=== PATIENT | female | born 1945 | race Caucasian/White ===

== ENCOUNTER 2022-12-09 16:31 | Inpatient (IN) | payer BC, OTHER ==
[~2022-12-09] VITALS: Ht 167.6 cm; Wt 47.4 kg
--- NOTE | 2022-12-09 17:06 | NUR ---
PT PUT ON BED ON MONITOR AND PULSE. VS WNL. COOPERATIVE AO X2, A BIT CONFUSED. FOUND BY THE NEIGHBOR ON THE GROUND BY 330pm.
--- NOTE | 2022-12-09 17:15 | NUR ---
PT PAIN ON RT KNEE. 01/29. NOTED MULTIPLE BRUISES IN HER FOREARMS.
[2022-12-09] MEDS ORDERED: IV NS 0.9% 1,000 ML BAG IV ONE (17:30)
--- NOTE | 2022-12-09 17:40 | NUR ---
IV INSERTED, BLD DRAWN SENT TO LAB. TECH FOR EKG AT BEDSIDE
[2022-12-09 17:57] LABS: BASOPHILS % (AUTO) 0.3 % (0.0-2.0); EOSINOPHILS % (AUTO) 1.2 % (0.0-6.0); HEMATOCRIT 37 % (33-45); HEMOGLOBIN 11.9 g/dL (11.5-14.8); LYMPHOCYTES # (AUTO) 1.2 K/uL (0.8-4.8); LYMPHOCYTES % (AUTO) 19.8 % (20.0-44.0); MEAN CORPUSCULAR HGB CONC 32 g/dl (31.0-36.0); MEAN CORPUSCULAR VOLUME 89 fL (82-100); MONOCYTES # (AUTO) 0.5 K/uL (0.1-1.30); MONOCYTES % (AUTO) 8.7 % (2.0-12.0); NEUTROPHILS # (AUTO) 4.2 K/uL (1.8-8.9); PLATELET COUNT (AUTO) 304 K/uL (150-450)
--- NOTE | 2022-12-09 18:07 | NUR ---
PT AT CT VIA [facility]
[2022-12-09 18:09] LABS: CALCIUM, SERUM 8.5 mg/dL (8.5-10.1); CARBON DIOXIDE 30 mmol/L (21-32); CHLORIDE 105 mmol/L (98-107); CREATININE 0.8 mg/dL (0.6-1.3); GLUCOSE 79 mg/dL (74-106); POTASSIUM 3.9 mmol/L (3.5-5.1); SODIUM SERUM 142 mmol/L (136-145); UREA NITROGEN, BLOOD 21 mg/dL (7-18)
[2022-12-09 18:15] LABS: ALANINE AMINOTRANSFERASE 38 U/L (12-78); ALBUMIN 2.1 g/dL (3.4-5.0); ALKALINE PHOSPHATASE 80 U/L (46-116); ASPARTATE AMINOTRANSFERASE 39 U/L (15-37); BILIRUBIN,DIRECT 0.1 mg/dL (0.0-0.2); BILIRUBIN,TOTAL 0.2 mg/dL (0.2-1.0); TOTAL PROTEIN, SERUM 6.8 g/dL (6.4-8.2)
--- NOTE | 2022-12-09 18:28 | NUR ---
COVID SWAB SENT TO LAB
--- NOTE | 2022-12-09 18:33 | NUR ---
MADE AWARE, PT ASKING FOR WATER TO DRINK. GAVE HER WATER
[2022-12-09 18:42] LABS: THYROID STIMULATING HORMONE 3.166 uIU/mL (0.358-3.74)
--- NOTE | 2022-12-09 19:13 | NUR ---
URINE COLLECTED AND SENT TO LAB
--- NOTE | 2022-12-09 19:31 | NUR ---
HERBERT ([facility]) [phone]
[2022-12-09 19:38] LABS: BILIRUBIN,URINE NEGATIVE (NEGATIVE); COLOR,URINE YELLOW (YELLOW); LEUKOCYTE ESTERASE ,URINE NEGATIVE (NEGATIVE); NITRITE, URINE NEGATIVE (NEGATIVE); PROTEIN,URINE TRACE mg/dl (NEGATIVE); UGLUCOSE NEGATIVE (NEGATIVE); UROBILINOGEN,URINE 0.2 EU/dL (0.2)
[2022-12-09 19:50] LABS: BACTERIA,URINE None seen /HPF (None Seen); MUCUS,URINE Few /LPF (None Seen); RBC,URINE 0-2 /HPF (0-2); SQUAMOUS EPITHELIAL CELL,UR 0-2 /HPF (None Seen); WBC,URINE 0-2 /HPF (0-3)
--- NOTE | 2022-12-09 21:43 | NUR ---
REPORT GIVEN TO PAMELA LERNER IN 3W
--- NOTE | 2022-12-09 22:30 | NUR ---
MANUFACTURING ANALYSTIUSS ANALYST NOTES RECEIVED PATIENT FROM ER WITH CARLOS WITH 2 RN'S. PATIENT IS ALERT AND ORIENTED TO PERSON AND PLACE. ABLE TO MAKE NEEDS KNOWN. NOTED BEING FORGETFUL. NO PAIN NOTED. NO SOB NOTED. ON ROOM AIR TOLERATING WELL. NO DISTRESS NOTED. ON TELE MONITOR READING SR. BED REST. CONTINENT OF BOWEL AND BLADDER. SKIN CHECKS DONE . NOTED LEFT HIP ABRASION, LEFT FOREARM DISCOLORATION AND BUTTOCK REDNESS. ALL THE PHOTO TAKEN AND KEPT IN THE CHART. ALL THE BELONGINGS ACCOUNTED AND SIGNED FOR. LEFT FOREARM IV SITE INFILTRATED UPON RECEIVE FROM ER. NEW IV SITE INSERTED AT THE RIGHT FOREARM G # 20. ON IV HYDRATION OF NS AT 75 ML/HR. ALL SAFETY MEASURES IN PLACE. BED LOCKED IN THE LOWEST POSITION. CALL LIGHT AND TABLE IN EASY REACH. SIDE RAILS UP TIMES 2. BED ALARM ON. WILL SIVAN NUE TO MONITOR CLOSELY.
[2022-12-09] MEDS: IV NS 0.9% 1,000 ML IV PRN (23:53)
[2022-12-10] VITALS (7 sets, daily range): BP systolic 114–148; BP diastolic 51–76
[2022-12-10] MEDS ORDERED: ACETAMINOPHEN 325 MG TABLET PO PRN
[2022-12-10] MEDS ORDERED: ONDANSETRON HCL/PF 4 MG/2 ML VIAL IVP PRN
--- NOTE | 2022-12-10 00:07 | NUR ---
RN NOTES PATIENT COMPLAIN OF LEFT KNEE PAIN. PRN TYLENOL GIVEN ORDERED FOR PAIN. WILL ASSESS IN 1 HOUR.
[2022-12-10 06:24] LABS: BASOPHILS % (AUTO) 0.7 % (0.0-2.0); EOSINOPHILS % (AUTO) 4.7 % (0.0-6.0); HEMATOCRIT 35 % (33-45); HEMOGLOBIN 11.1 g/dL (11.5-14.8); LYMPHOCYTES # (AUTO) 1.1 K/uL (0.8-4.8); LYMPHOCYTES % (AUTO) 25.5 % (20.0-44.0); MEAN CORPUSCULAR HGB CONC 32 g/dl (31.0-36.0); MEAN CORPUSCULAR VOLUME 89 fL (82-100); MONOCYTES # (AUTO) 0.6 K/uL (0.1-1.30); MONOCYTES % (AUTO) 12.7 % (2.0-12.0); NEUTROPHILS # (AUTO) 2.5 K/uL (1.8-8.9); NEUTROPHILS % (AUTO) 56.4 % (43.0-81.0); PLATELET COUNT (AUTO) 291 K/uL (150-450); RED BLOOD CELL COUNT(AUTO) 3.89 MIL/uL (4.0-5.2); WHITE BLOOD COUNT (AUTO) 4.4 K/uL (4.3-11.0)
[2022-12-10 06:47] LABS: CHOLESTEROL 101 mg/dL (<200); HDL CHOLESTEROL 40 mg/dL (40-60); LDL 62 mg/dL (0-99); TRIGLYCERIDES 61 mg/dL (30-150)
--- NOTE | 2022-12-10 06:49 | NUR ---
LOCAL COORDINATOR CLOSING NOTES PATIENT RESTING IN BED. PATIENT IS ALERT AND ORIENTED TO PERSON AND PLACE. ABLE TO MAKE NEEDS KNOWN. NOTED BEING FORGETFUL. NO PAIN NOTED. NO SOB NOTED. ON ROOM AIR TOLERATING WELL. NO DISTRESS NOTED. ON TELE MONITOR READING SR. BED REST. CONTINENT OF BOWEL AND BLADDER. IV AT THE RIGHT FOREARM G # 2O INTACT . ON IV HYDRATION OF NS AT 75 ML/HR. ALL SAFETY MEASURES IN PLACE. BED LOCKED IN THE LOWEST POSITION. CALL LIGHT AND TABLE IN EASY REACH. SIDE RAILS UP TIMES 2. BED ALARM ON. WILL ENDORSE FOR BUZZ.
[2022-12-10 06:52] LABS: CALCIUM, SERUM 7.9 mg/dL (8.5-10.1); CARBON DIOXIDE 29 mmol/L (21-32); CHLORIDE 107 mmol/L (98-107); CREATININE 0.7 mg/dL (0.6-1.3); GLUCOSE 73 mg/dL (74-106); POTASSIUM 3.7 mmol/L (3.5-5.1); SODIUM SERUM 141 mmol/L (136-145)
[2022-12-10 06:53] LABS: MAGNESIUM 1.4 mg/dL (1.8-2.4); PHOSPHORUS 2.9 mg/dL (2.5-4.9)
[2022-12-10 07:07] LABS: UREA NITROGEN, BLOOD 15 mg/dL (7-18)
--- NOTE | 2022-12-10 07:30 | NUR ---
SUPPORT ASSISTANT OPENING NOTES RECEIVED PATIENT ON BED AWAKE AND A/O X2. ON ROOM AIR TOLERATING WELL. NO SOB NOTED. NOT IN DISTRESS. WITH NO COMPLAINTS OF PAIN AT THIS TIME. WITH IV ACCESS AT THE RIGHT FOREARM G20 WITH NS AT 75ML/HR INFUSING WELL. ON TELE MONITOR CURRENTLY READING SINUS RHYTHM AT 66BPM. SAFETY MEASURES IN PLACED. CALL LIGHT WITHIN REACH. BED ALARM ON. BED ON LOWEST LOCKED POSITION, SIDE RAILS UP X2. WILL CONTINUE TO MONITOR.
--- NOTE | 2022-12-10 11:30 | NUR ---
WOUND CARE CONSULT: PT PRESENTS WITH UNSTAGEABLE PRESSURE ULCER TO LEFT HIP AND DEEP TISSUE INJURY TO SACRAL AREA, PRESENT ON ADMISSION. DISCUSSED SKIN PROTECTION AND WOUND CARE RECOMMENDATIONS WITH NURSING STAFF. DR ELIAS BROCK CALLED FOR SURGICAL CONSULT. IN AGREEMENT WITH PLAN OF CARE. Addendum: 12/10/22 at 1131 by MACARIO RODRIGUEZ WNDNU Amended: Links added.
[2022-12-10] MEDS: Magnesium 1GM/D5W 100ML PREMIX 100 ML IV SCH ×4 (11:38→17:50)
[2022-12-10] MEDS: THERAHONEY GEL 1.5 OZ TUBE TP SCH (13:08)
[2022-12-10] MEDS: GLUCERNA SHAKE 237 ML CAN PO SCH (17:50)
[2022-12-10] MEDS: PROSOURCE / PROSTAT (PYXIS) 30 ML UDC GT SCH (17:50)
[2022-12-10] MEDS: IV NS 0.9% 1,000 ML IV PRN (18:09)
--- NOTE | 2022-12-10 19:00 | NUR ---
WOODEN TANK ERECTOR CLOSING NOTES PATIENT ON BED AWAKE AND A/O X2. ON ROOM AIR TOLERATING WELL. NO SOB NOTED. NOT IN DISTRESS. WITH NO COMPLAINTS OF PAIN AT THIS TIME. WITH IV ACCESS AT THE RIGHT FOREARM G20 WITH NS AT 75ML/HR INFUSING WELL. ON TELE MONITOR CURRENTLY READING SINUS RHYTHM AT 62BPM. DUE MEDS GIVEN. SAFETY MEASURES IN PLACED. CALL LIGHT WITHIN REACH. BED ALARM ON. BED ON LOWEST LOCKED POSITION, SIDE RAILS UP X2. WILL ENDORSE TO NEXT SHIFT FOR BUZZ.
--- NOTE | 2022-12-10 19:15 | NUR ---
PEDIATRIC CLINICAL DIETICIAN OPENING NOTES PATIENT IS SLEEPING IN BED, EASILY BEING AROUSED. SHE IS ALERT AND ORIENTED BUT FORGETFUL; A/O X2. SHE IS ON ROOM AIR, TOLERATING WELL. NO S/S OF DISTRESS OR SOB. PT DENIES OF HAVING PAIN AT THIS MOMENT. PT IS ON EXTERNAL PUSHER OPERATOR, ON THE MONITOR, HER HEART RHYTHM IS SR WITH HR AT 60S. IV ACCESS IS AT HER RIGHT FOREARM, #20G, INFUSING NS @ 75ML/HR. IV SITE IS PATENT AND INTACT. SAFETY MEASURES ARE IN PLACED: BED IN LOWEST AND LOCKED POSITION; SIDE RAILS UP X 2; BED ALARM IS SET; CALL LIGHT AND TABLE ARE WITHIN REACH. WILL CONTINUE MONITORING THE PT AND PROVIDE THE CARE PT NEEDS.
[2022-12-11] VITALS (10 sets, daily range): BP systolic 93–141; BP diastolic 52–78
[2022-12-11] MEDS: IV NS 0.9% 1,000 ML IV PRN (05:27)
--- NOTE | 2022-12-11 06:15 | NUR ---
PACKING ROOM SUPERVISOR ORTHOSTATIC BP NOTE PT'S ORTHOSTATIC BLOOD PRESSURE ARE THE FOLLOWING: - LYING DOWN ON THE BED: BP IS 141/63, HR IS 63. - SITTING AT THE SIDE OF THE BED: BP IS 132 / 55; HR IS 69; - STANDING AT THE BEDSIDE: BP IS 140/70, HR IS 76. PT IS WEAK, BUT ABLE TO STAND UP WITH HELP. TOLERATED WELL. NO S/S OF SOB OR DISTRESS.
[2022-12-11 06:21] LABS: BASOPHILS % (AUTO) 0.7 % (0.0-2.0); EOSINOPHILS % (AUTO) 4.2 % (0.0-6.0); HEMATOCRIT 35 % (33-45); HEMOGLOBIN 11.2 g/dL (11.5-14.8); LYMPHOCYTES # (AUTO) 1.2 K/uL (0.8-4.8); LYMPHOCYTES % (AUTO) 23.5 % (20.0-44.0); MEAN CORPUSCULAR HGB CONC 32 g/dl (31.0-36.0); MEAN CORPUSCULAR VOLUME 89 fL (82-100); MONOCYTES # (AUTO) 0.6 K/uL (0.1-1.30); MONOCYTES % (AUTO) 11.5 % (2.0-12.0); NEUTROPHILS # (AUTO) 3.1 K/uL (1.8-8.9); NEUTROPHILS % (AUTO) 60.1 % (43.0-81.0); PLATELET COUNT (AUTO) 311 K/uL (150-450); RED BLOOD CELL COUNT(AUTO) 3.96 MIL/uL (4.0-5.2); WHITE BLOOD COUNT (AUTO) 5.2 K/uL (4.3-11.0)
--- NOTE | 2022-12-11 06:44 | NUR ---
PATTERNMAKER ALL AROUND CLOSING NOTE PATIENT IS SLEEPING IN BED, EASILY BEING AROUSED. SHE IS ALERT AND ORIENTED BUT FORGETFUL; A/O X 2. SHE IS ON 2 MATRIX INSPECTOR OXYGEN VIA NC, TOLERATING WELL. NO S/S OF DISTRESS OR SOB. PT DENIES OF HAVING PAIN AT THIS MOMENT. PT IS ON EXTERNAL HAIRPIECE STYLIST, ON THE MONITOR, HER HEART RHYTHM IS SR AND SB WITH HR BETWEEN 60S TO 50S . IV ACCESS IS AT HER RIGHT FOREARM, #20G, INFUSING NS @ 75ML/HR. IV SITE IS PATENT AND INTACT. SAFETY MEASURES ARE IN PLACED: BED IN LOWEST AND LOCKED POSITION; SIDE RAILS UP X 2; BED ALARM IS SET; CALL LIGHT AND TABLE ARE WITHIN REACH. WILL ENDORSE NEXT SHIFT NURSE FOR CONTINUING PT CARE.
[2022-12-11 07:21] LABS: CALCIUM, SERUM 8.1 mg/dL (8.5-10.1); CREATININE 0.7 mg/dL (0.6-1.3); MAGNESIUM 2.2 mg/dL (1.8-2.4); PHOSPHORUS 3.1 mg/dL (2.5-4.9); POTASSIUM 3.9 mmol/L (3.5-5.1)
--- NOTE | 2022-12-11 07:27 | NUR ---
WEB METHODS DEVELOPER OPENING NOTES RECEIVED PATIENT SLEEPING IN BED, EASILY AROUSED. A/O X2, NO PAIN/DISCOMFORT NOTED AT THIS TIME. ON O2 VIA NC AT 2LPM, TOLERATING WELL. NO S/S OF DISTRESS OR SOB. ON EXTERNAL SAMPLE MOUNTER WITH CURRENT READING OF SB-57. IV ACCESS IN RIGHT FOREARM, #20G WITH ONGOING NS @ 75ML/HR, INFUSING WELL. SAFETY MEASURES IN PLACED: BED IN LOWEST AND LOCKED POSITION; SIDE RAILS UP X 3; BED ALARM IS SET; CALL LIGHT AND TRAY TABLE WITHIN REACH. WILL CONTINUE TO MONITOR.
[2022-12-11] MEDS: GLUCERNA SHAKE 237 ML CAN PO SCH ×3 (08:40→16:54)
[2022-12-11] MEDS: PROSOURCE / PROSTAT (PYXIS) 30 ML UDC GT SCH ×3 (08:41→16:53)
[2022-12-11] MEDS: THERAHONEY GEL 1.5 OZ TUBE TP SCH (08:41)
[2022-12-11] MEDS ORDERED: CYANOCOBALAMIN 1,000 MCG/ML VIAL IM ONE (17:00)
--- NOTE | 2022-12-11 17:05 | NUR ---
RN NOTES TRIED TO ADMINISTER CYANOCOBALAMIN 1000MCG/ML VIAL IM DUE AT 1700 BUT PATIENT REFUSED. PT VERBALIZED SHE IS NOT YET READY AND AFRAID TO INJECTIONS.
--- NOTE | 2022-12-11 18:42 | NUR ---
QUALITY TECHNICIAN FIBERGLASS CLOSING NOTES PATIENT RESTING IN BED. A/O X 2, NO PAIN/DISCOMFORT NOTED AT THIS TIME. ON O2 VIA NC AT 2LPM, TOLERATING WELL. ON EXTERNAL EQUIPMENT TESTER WITH CURRENT READING OF SR-71. IV ACCESS IN RIGHT FOREARM #20G, SL, C/D/I. NEEDS ATTENDED. SAFETY MEASURES IN PLACED: BED IN LOWEST AND LOCKED POSITION; SIDE RAILS UP X 3; BED ALARM IS SET; CALL LIGHT AND TRAY TABLE WITHIN REACH. WILL ENDORSE BUZZ TO PRINCIPAL STATISTICAL PROGRAMMER.
--- NOTE | 2022-12-11 19:50 | NUR ---
BLOCK PILER OPENING NOTE RECEIVED PATIENT SLEEPING IN BED, EASY TO AROUSE. PT A/O X2, ABLE TO MAKE SIMPLE NEEDS KNOWN. NO PAIN/DISCOMFORT NOTED AT THIS TIME. ON O2 VIA NC AT 2LPM, TOLERATING WELL. NO S/S OF DISTRESS OR SOB. ON EXTERNAL IRRIGATOR SPRINKLING SYSTEM WITH CURRENT READING OF SR-74. IV ACCESS TO RIGHT FOREARM, SL. SAFETY MEASURES IN PLACE: BED LOCKED, IN LOWEST POSITION; SIDE RAILS UP X 3; BED ALARM ON; CALL LIGHT AND TRAY TABLE WITHIN REACH. WILL CONTINUE TO MONITOR PT.
[2022-12-12] VITALS: BP 135/56
[2022-12-12 04:00] VITALS: BP 146/61
[2022-12-12 06:29] LABS: BASOPHILS % (AUTO) 0.5 % (0.0-2.0); EOSINOPHILS % (AUTO) 3.2 % (0.0-6.0); HEMATOCRIT 34 % (33-45); HEMOGLOBIN 10.9 g/dL (11.5-14.8); LYMPHOCYTES # (AUTO) 1.4 K/uL (0.8-4.8); MEAN CORPUSCULAR HGB CONC 32 g/dl (31.0-36.0); MEAN CORPUSCULAR VOLUME 88 fL (82-100); MONOCYTES # (AUTO) 0.7 K/uL (0.1-1.30); MONOCYTES % (AUTO) 11.8 % (2.0-12.0); NEUTROPHILS # (AUTO) 3.6 K/uL (1.8-8.9); NEUTROPHILS % (AUTO) 60.5 % (43.0-81.0); PLATELET COUNT (AUTO) 349 K/uL (150-450); RED BLOOD CELL COUNT(AUTO) 3.87 MIL/uL (4.0-5.2)
--- NOTE | 2022-12-12 06:40 | NUR ---
GEOSCIENCE PROFESSOR CLOSING NOTE PATIENT RESTING IN BED. PT A/O X 2, NO PAIN/DISCOMFORT NOTED AT THIS TIME. ON O2 VIA NC AT 2LPM, TOLERATING WELL. ON EXTERNAL CLAY PROCESSING FACTORY WORKER WITH CURRENT READING OF SR-67. IV ACCESS IN RIGHT FOREARM #20G, SL, C/D/I. NEEDS ATTENDED. SAFETY MEASURES IN PLACED: BED IN LOWEST AND LOCKED POSITION; SIDE RAILS UP X 3; BED ALARM ON; CALL LIGHT AND TRAY TABLE WITHIN REACH. WILL ENDORSE TO ORGANIC CHEMISTRY TEACHER RN FOR BUZZ.
[2022-12-12 06:48] LABS: CALCIUM, SERUM 8.3 mg/dL (8.5-10.1); CREATININE 0.7 mg/dL (0.6-1.3); MAGNESIUM 1.8 mg/dL (1.8-2.4); PHOSPHORUS 2.8 mg/dL (2.5-4.9); POTASSIUM 4.1 mmol/L (3.5-5.1)
--- NOTE | 2022-12-12 07:35 | NUR ---
ACCOUNTANT CONTROLLER OPENING NOTE RECEIVED PATIENT SLEEPING IN BED, EASY TO AROUSE. PT A/O X2, ABLE TO MAKE SIMPLE NEEDS KNOWN. NO PAIN/DISCOMFORT NOTED AT THIS TIME. ON O2 VIA NC AT 2LPM, TOLERATING WELL. NO S/S OF DISTRESS OR SOB. ON EXTERNAL SKI PATROL DIRECTOR WITH CURRENT READING OF SR-71. IV ACCESS TO RIGHT FOREARM, SL. SAFETY MEASURES IN PLACE: BED LOCKED, IN LOWEST POSITION; SIDE RAILS UP X 3; BED ALARM ON; CALL LIGHT AND TRAY TABLE WITHIN REACH. WILL CONTINUE TO MONITOR THE PATIENT.
[2022-12-12 08:24] VITALS: BP 157/84
[2022-12-12] MEDS: GLUCERNA SHAKE 237 ML CAN PO SCH ×3 (08:50→16:11)
[2022-12-12] MEDS: CYANOCOBALAMIN 500 MCG TABLET PO SCH (08:50)
[2022-12-12] MEDS: PROSOURCE / PROSTAT (PYXIS) 30 ML UDC GT SCH ×3 (08:50→16:10)
[2022-12-12] MEDS: THERAHONEY GEL 1.5 OZ TUBE TP SCH (08:51)
[2022-12-12 11:26] VITALS: BP 112/57
[2022-12-12] MEDS ORDERED: Prosource GT (14:29)
[2022-12-12] MEDS ORDERED: CYAN500T64 PO (14:29)
[2022-12-12] MEDS ORDERED: NUT.237L45 PO (14:29)
[2022-12-12 15:37] VITALS: BP 129/62
--- NOTE | 2022-12-12 18:48 | NUR ---
COMMISSION SALES ASSOCIATE CLOSING NOTE PATIENT AWAKE AND RESTING IN BED. PT A/O X 2, NO PAIN/DISCOMFORT NOTED AT THIS TIME. ON O2 VIA NC AT 2LPM, TOLERATING WELL. ON EXTERNAL AUTOMOTIVE PARTS COUNTER PERSON WITH CURRENT READING OF SR-80. IV ACCESS IN RIGHT FOREARM #20G, SL, C/D/I. NEEDS ATTENDED DURING SHIFT. PATIENT WITH DC ORDER AWAITING CONFIRMATION OF PLACEMENT TO [facility]. CM TO FOLLOW UP BY TOMORROW. FAMILY AT BEDSIDE ASKED FOR UPDATE BY TOMORROW PRIOR TO DISCHARGE. SAFETY MEASURES IN PLACED: BED IN LOWEST AND LOCKED POSITION; SIDE RAILS UP X 3; BED ALARM ON; CALL LIGHT AND TRAY TABLE WITHIN REACH. WILL ENDORSE TO WEBSITE DESIGNER RN FOR BUZZ.
--- NOTE | 2022-12-12 19:30 | NUR ---
COMPUTED TOMOGRAPHY TECHNICIAN OPENING NOTE RECEIVED PT SLEEPING IN BED, EASILY AROUSED. A/O X2, ORIENTED TO PERSON AND TIME ONLY. ON O2 2L VIA NC TOLERATING WELL WITH NO S/S OF SOB OR DISTRESS. C/O GENERALIZED PAIN BUT REFUSED MEDICATION. ON EXTERNAL POWER LINEMAN TECHNICIAN WITH CURRENT READING OF SR, HR 76. IV ACCESS IN RIGHT FOREARM #20G SL, INFILTRATED AND LEAKING. WILL INSERT A NEW ONE. PATIENT FOR DC PLANNING, AWAITING CONFIRMATION OF PLACEMENT. CM TO FOLLOW UP BY TOMORROW. SAFETY MEASURES IN PLACE: BED LOCKED AND IN LOWEST POSITION, SIDE RAILS UP X3, BED ALARM ON, CALL LIGHT AND TRAY TABLE WITHIN REACH. WILL CONTINUE TO MONITOR AND ASSIST.
[2022-12-12 20:00] VITALS: BP 130/58
--- NOTE | 2022-12-12 20:50 | NUR ---
RN NOTE NEW IV LINE INSERTED: LFA #20G. PREVIOUS IV LINE (RFA #20G) REMOVED DUE TO INFILTRATION/LEAKAGE.
[2022-12-13] VITALS: BP 118/53
[2022-12-13 04:00] VITALS: BP 120/58
--- NOTE | 2022-12-13 07:00 | NUR ---
RETAIL HELPER CLOSING NOTE PT SLEEPING IN BED, EASILY AROUSED. A/O X2, ORIENTED TO PERSON AND TIME ONLY. STABLE ON O2 2L VIA NC TOLERATING WELL LAST NIGHT WITH NO S/S OF SOB OR DISTRESS. THIS MORNING VERBALIZED SHE DOESN'T WANT IT ANYMORE. DENIES PAIN AT THIS TIME. ON EXTERNAL DOCK OR PIER LABORER WITH CURRENT READING OF SR, HR 68. IV ACCESS IN LEFT FOREARM #20G SL, INTACT, PATENT, FLUSHING WELL. PATIENT FOR DC PLANNING, AWAITING CONFIRMATION OF PLACEMENT. CM TO FOLLOW UP TODAY. ALL CARE PROVIDED AND MEDS TOLERATED WELL. WOUND CARE PERFORMED. SAFETY MEASURES MAINTAINED: BED LOCKED AND IN LOWEST POSITION, SIDE RAILS UP X3, BED ALARM ON, CALL LIGHT AND TRAY TABLE WITHIN REACH. WILL ENDORSE BUZZ TO DAY SHIFT NURSE.
--- NOTE | 2022-12-13 07:30 | NUR ---
OPENING NOTE PATIENT RECEIVED A/O x1, ON NC 2L, NO S/S OF DISTRES OR SOB.CLEAR LUNG SOUNDS. SKIN WARM TO TOUCH, NO EDEMA PRESENT. CAPILLARY FEILL <3. NO S/S OR COMPLAINTS OF PAIN. IV ACCESS LFA G#20 SL. INCONTIENT ON [place]. FALL PRECAUTION AND SAFETY PRECAUTION IN PLACED: BED LOCK AND IN LOWEST POSITION,SRx2, BED SIDE TABLE WITHIN REACH, CALL LIGHT WITHIN REACH.
[2022-12-13 08:46] VITALS: BP 146/68
[2022-12-13] MEDS: CYANOCOBALAMIN 500 MCG TABLET PO SCH (09:34)
[2022-12-13] MEDS: GLUCERNA SHAKE 237 ML CAN PO SCH ×2 (09:40→11:11)
[2022-12-13] MEDS: THERAHONEY GEL 1.5 OZ TUBE TP SCH (09:40)
[2022-12-13] MEDS: PROSOURCE / PROSTAT (PYXIS) 30 ML UDC GT SCH (09:44)
--- NOTE | 2022-12-13 14:50 | NUR ---
DISCHARGE NOTE PATIENT IS DISCHARGED. A/0x1, ON NC 2L. V/S TAKEN AND STABLE. IV ACCESS REMOVED IV CATHETER TIP INTACT AND PRESSURE DRESSING WAS APPLIED. NAME BAND REMOVED. EXTERNAL MONITOR WAS REMOVED AND RETURNED TO TELE DESK. ALL BELONGING WERE CHECK AND BELONGING LIST WAS SIGNED AND PLACED IN CHART. REPORT WAS GIVEN TO YANN ALONSO AT [facility].PATIENT LEFT @ 1445 VIA GURNEY ACCOMPANIED BY 2 EMT. FAMILY MADE AWARE OF TRANSFER. CHARGE NURSE AWARE OF DISCHARGE.
== END 2022-12-13 14:55 | DRG 640 ==
LOC: ER 16:35 → MED 21:51 → TELE 22:36
PROVIDERS: ADMIT Nurse Practitioner Acute Care; ATTEND Nurse Practitioner Family
DX: R62.7 Adult failure to thrive (principal); G93.41 Metabolic encephalopathy; N17.0 Acute kidney failure with tubular necrosis; E44.0 Moderate protein-calorie malnutrition; J90 Pleural effusion, not elsewhere classified; F03.90 Unspecified dementia, unspecified severity, without behavioral disturbance, psychotic disturbance, mood disturbance, and anxiety; R29.6 Repeated falls; Z20.822 Contact with and (suspected) exposure to COVID-19; M25.511 Pain in right shoulder; R32 Unspecified urinary incontinence; E88.09 Other disorders of plasma-protein metabolism, not elsewhere classified; E83.42 Hypomagnesemia; W19.XXXA Unspecified fall, initial encounter; Y92.009 Unspecified place in unspecified non-institutional (private) residence as the place of occurrence of the external cause; S30.0XXA Contusion of lower back and pelvis, initial encounter; R26.9 Unspecified abnormalities of gait and mobility; S70.212A Abrasion, left hip, initial encounter
CPT/HCPCS: 36415; 70450-TC; 71045-TC; 72131-TC; 80048-TC; 80061-TC; 80076-TC; 81001; 82550-TC; 82607-TC; 83605-TC; 83735-TC; 83921; 84100-TC; 84443-TC; 84484-TC; 85025-TC; 87081-TC; 93307-TC; 97110-TC; 97116-TC; 97530-TC; A4223; A6403; C9803; G0378; J3420; J3475; J7030